=== PATIENT | female | born 1995 | race Hispanic/Latino ===

== ENCOUNTER 2020-05-30 09:30 | Outpatient (CLI) | payer BC ==
--- NOTE | 2020-05-30 10:07 | RAD ---
XR Abdomen 2 View HISTORY: Chronic constipation. Rectal pain COMPARISON: None. FINDINGS: The bowel gas pattern is unremarkable. No free air or differential fluid levels are noted. No suspici ous calcifications are seen. Bony structures are unremarkable.
== END 2020-05-30 09:31 | disposition home or self-care (01) ==
LOC: BICRAD 09:30
PROVIDERS: ATTEND Physician Assistant Medical
DX: K59.09 Other constipation (principal); K62.89 Other specified diseases of anus and rectum
CPT/HCPCS: 74019